=== PATIENT | male | born 1990 | race Caucasian/White ===

== ENCOUNTER 2023-06-26 09:29 | Day surgery (SDC) | payer OTHER ==
[~2023-06-26] VITALS: Ht 165.1 cm; Wt 63.5 kg
[2023-06-26 10:51] VITALS: O2SAT 99
[2023-06-26] MEDS ORDERED: PROPOFOL 200MG/ 20ML VIAL (DIPRIVAN) IV ONE (11:18)
[2023-06-26] MEDS ORDERED: ePHEDrine sulfate 50 MG/ML VIAL ONE (11:18)
[2023-06-26] MEDS ORDERED: SUCCINYLCHOLINE CHLORIDE 20 MG/ML(QUELICIN) ONE (11:18)
[2023-06-26] MEDS ORDERED: DEXAMETHASONE SOD PHOSPHATE 4 MG/ML VIAL ONE (11:18)
[2023-06-26] MEDS ORDERED: MIDAZOLAM HCL 2 MG/2 ML VIAL (VERSED) ONE (11:18)
[2023-06-26] MEDS ORDERED: PHENYLEPHRINE HCL 10 MG/ML VIAL (NEOSYNEPHRINE) ONE (11:18)
[2023-06-26] MEDS ORDERED: fentaNYL CITRATE/PF 100 MCG/2 ML AMP ONE (11:18)
[2023-06-26] MEDS ORDERED: ROCURONIUM BROMIDE 10 MG/ML (ZEMURON) ONE (11:18)
[2023-06-26] MEDS ORDERED: OXYMETAZOLINE HCL 0.05% NASAL SPRAY NS ONE (11:18)
[2023-06-26] MEDS ORDERED: KETOROLAC TROMETHAMINE 30 MG VIAL ONE (11:18)
[2023-06-26] MEDS ORDERED: GLYCOPYRROLATE 0.2 MG/ML VIAL ONE (11:18)
[2023-06-26] MEDS ORDERED: NEOSTIGMINE METHYLSULFATE 1 MG/ML, 10 ML VIAL ONE (11:18)
[2023-06-26] MEDS ORDERED: SEVOFLURANE 15 MIN GAS INH ONE (11:18)
[2023-06-26] MEDS ORDERED: METOCLOPRAMIDE HCL 10 MG/2 ML VIAL ONE (11:18)
[2023-06-26] MEDS ORDERED: LIDOCAINE/EPI 1% 1:100000 20 ML VIAL ONE (11:18)
[2023-06-26] MEDS ORDERED: ONDANSETRON HCL 4 MG/2 ML VIAL ONE (11:18)
[2023-06-26] MEDS ORDERED: NS IRRIG SOLN 1000 ML IR ONE (11:18)
[2023-06-26] MEDS ORDERED: LR 1,000 ML IV.SOLN IV ONE (11:18)
[2023-06-26] MEDS ORDERED: HYDROmorphone 1 MG/ML INJ. CARTRIDGE IVP PRN (12:15)
[2023-06-26] MEDS ORDERED: KETOROLAC TROMETHAMINE 30 MG VIAL IVP PRN (12:15)
[2023-06-26] MEDS ORDERED: MEPERIDINE HCL/PF 25 MG/ML DISP.SYRIN IVP PRN (12:15)
[2023-06-26] MEDS ORDERED: LR 1,000 ML IV SCH (12:15)
[2023-06-26] MEDS ORDERED: ONDANSETRON HCL 4 MG/2 ML VIAL IVP PRN (12:15)
[2023-06-26 18:19] VITALS: BP_SYST 108; PULSE 66; RESP 17
== END 2023-06-26 16:41 | disposition home or self-care (01) ==
LOC: SDS 09:29 → SMU 09:30 → SDS 16:41
PROVIDERS: ATTEND Otolaryngology
DX: J34.89 Other specified disorders of nose and nasal sinuses (principal); D38.5 Neoplasm of uncertain behavior of other respiratory organs; J34.2 Deviated nasal septum; R22.0 Localized swelling, mass and lump, head; R09.81 Nasal congestion; F12.10 Cannabis abuse, uncomplicated; Z79.899 Other long term (current) drug therapy
CPT/HCPCS: 31255; 31296; 30140; 30520; 31256; J1100; J3490; J1885; J2765; J3465; J2710; J2405; J2370; J2704; J0330; J3010; J7120; 88304; 88305; 88311; C1726